=== PATIENT | female | born 1995 | race Caucasian/White ===

== ENCOUNTER 2021-09-21 09:34 | Emergency (ER) | payer OTHER ==
[~2021-09-21] VITALS: Ht 312.4 cm; Wt 52.2 kg
[2021-09-21] MEDS ORDERED: KETO10TA2 PO (15:52)
== END 2021-09-21 16:16 | disposition home or self-care (01) ==
LOC: ER 09:34
DX: R10.2 Pelvic and perineal pain (principal); R10.32 Left lower quadrant pain; Z03.818 Encounter for observation for suspected exposure to other biological agents ruled out
CPT/HCPCS: 74177; 76830; Q9965

== ENCOUNTER 2023-09-10 20:38 | Emergency (ER) | payer OTHER ==
[~2023-09-10] VITALS: Ht 160 cm; Wt 52.2 kg
[~2023-09-10 20:38] MED LIST: KETO10TA2 PO
[2023-09-11 01:04] LABS: PH,URINE 5.5 (5.0-8.0); URINE APPEARANCE Cloudy; URINE BILIRRUBIN Negative (NEGATIVE); URINE BLOOD Large; URINE COLOR Yellow; URINE GLUCOSE Negative (NEGATIVE); URINE LEUKOCYTE Small; URINE NITRATE Negative; URINE PROTEIN Negative (NEGATIVE); URINE UROBILINOGEN 0.2 E.U./dl
[2023-09-11 01:05] LABS: HEMATOCRIT 33.2 % (36.0-45.00); MEAN CELL VOLUME 94.1 fL (80.00-100.00); MEAN CORPUSCULAR HGB CONC 35.3 g/dl (32.0-36.0); PLATELET COUNT 245 K/uL (150-450); RED BLOOD COUNT 3.53 M/uL (4.00-6.00); RED CELL DISTRIBUTION WIDTH 13.1 % (11.5-14.5)
[2023-09-11 01:07] LABS: URINE BACTERIA 1901.1 uL (0.0-1933); URINE EPITHELIAL CELLS 30.7 uL (0.0-38.8); URINE RBC 15.6 uL (0.0-20.8); URINE WBC 39.8 uL (0.0-23.2)
[2023-09-11 01:19] LABS: HEMOGLOBIN 11.7 g/dL (12.0-15.00); MEAN CORPUSCULAR HEMOGLOBIN 33.1 pg (27.00-32.0)
[2023-09-11 01:27] LABS: INR 1.03; PARTIAL THROMBOPLASTIN TIME 25.4 SECONDS (22.0-34.0); PROTHROMBIN TIME 10.8 SECONDS (9.0-11.5)
[2023-09-11 01:34] LABS: CALCIUM 8.6 mg/dL (8.5-10.1); CREATININE SERUM 0.72 mg/dL (0.55-1.02); GFR 96.45; POTASSIUM 3.62 mEq/L (3.5-5.1)
== END 2023-09-11 04:52 | disposition home or self-care (01) ==
LOC: ER 20:38
PROVIDERS: General Practice
DX: O20.9 Hemorrhage in early pregnancy, unspecified (principal); Z3A.00 Weeks of gestation of pregnancy not specified